=== PATIENT | male | born 1965 | race Two or more races ===

== ENCOUNTER 2021-06-11 05:51 | Day surgery (SDC) | payer BC ==
[2021-06-11] MEDS ORDERED: fentaNYL 100 MCG/2 ML SDV IV ONE ×4 (05:52→06:54)
[2021-06-11] MEDS ORDERED: Midazolam 1 MG/ML 2 ML SDV IV ONE ×7 (05:52→06:51)
[2021-06-11] MEDS ORDERED: Dextrose 5%-0.45% NaCl 1,000 ML IV SCH (06:00)
[2021-06-11] MEDS ORDERED: Sodium Chloride 0.9% 10 ML Syringe FLUSH PRN (06:00)
[2021-06-11] MEDS ORDERED: fentaNYL 100 MCG/2 ML SDV ONE (06:18)
[2021-06-11] MEDS ORDERED: Midazolam 1 MG/ML 2 ML SDV ONE (06:18)
--- NOTE | 2021-06-11 07:48 | OR ---
DATE: 06/11/2021 PROCEDURE: Total colonoscopy, NBI, and cold snare polypectomy. INSTRUMENT USED: [id number] Olympus video colonoscope. PREMEDICATIONS: Fentanyl 125 mcg intravenous, Versed 4 mg intravenous. Nasal O2 cannula. The procedure was done under pulse oximetry, BP recording, and monitor car operator. INDICATION: The patient with positive FIT, colonoscopic examination is done for detection of any polypoid lesions and removal, endoscopic hemostasis therapy if needed. DESCRIPTION OF PROCEDURE: Initial rectal exam was unremarkable. Rigid anoscopy showed small internal hemorrhoids without bleeding from them. The colonoscope was passed with ease. Scattered diverticula were noted in the distal left colon, with some deformity. The scope was passed with ease to the ileocecal area. Photographs were taken of the normal-appearing cecum, identified by landmarks of appendiceal orifice and double-bulged ileocecal folds. In the mid ascending colon, less than 1 cm sized benign-appearing polyp was noted, NBI views were obtained, photographs were taken, cold snare polypectomy was done, the tissue was retrieved and sent for histopathology. No stricture. No vascular ectasia. No large isolated ulcerations seen. No evidence of diffuse inflammatory bowel disease in the form of friability, contact bleeding, or ulcerations. Probing the proximal sides of folds and flexures using adequate distention and clearing up the stool material, withdrawal of the scope was made, cecum to rectum time over 6 minutes. No bleeding was noted from any of the visualized areas at the completion of the examination. IMPRESSION: 1. Internal hemorrhoids. 2. Diverticulosis. 3. Ascending colon polyp. The patient tolerated the procedure well. [facility] /[id number]
== END 2021-06-11 09:12 | disposition home or self-care (01) ==
LOC: DL.ENDO 05:51
PROVIDERS: ATTEND Internal Medicine Gastroenterology
DX: D12.2 Benign neoplasm of ascending colon (principal); K57.30 Diverticulosis of large intestine without perforation or abscess without bleeding; K64.8 Other hemorrhoids; E66.01 Morbid (severe) obesity due to excess calories; F17.210 Nicotine dependence, cigarettes, uncomplicated; Z01.812 Encounter for preprocedural laboratory examination; Z98.890 Other specified postprocedural states; Z20.822 Contact with and (suspected) exposure to COVID-19
CPT/HCPCS: 45385; 87635; J2250; J3010; J7042; U0002